=== PATIENT | male | born 1965 | race American Indian/Alaskan Native ===

== ENCOUNTER 2017-03-07 15:46 | Outpatient (CLI) | payer MEDICARE ==
--- NOTE | 2017-03-07 17:39 | Ultrasound Report ---
FINAL REPORT PROCEDURE: US ABDOMEN COMPLETE TECHNIQUE: Real-time sonography in multiple planes of the abdomen was performed with image documentation. CPT 71378 HISTORY: Weight gain. Evaluate for ASCITES COMPARISON: No prior studies are available for comparison. FINDINGS: Liver: Diffuse increased echogenicity suggests fatty infiltration. Gallbladder: Fluid filled. No gallstones, wall thickening, pericholecystic fluid, or sonographic Garcia's sign. Intrahepatic bile ducts: Normal caliber . Extrahepatic bile ducts: Common bile duct measures 4 millimeters in caliber. Pancreas: Not well-visualized. Aorta: Visualized portions appear normal. IVC: Visualized portions appear normal. RIGHT kidney: Normal echotexture. No focal renal mass, calculus, or hydronephrosis. Length: 12.1cm. LEFT kidney: Normal echotexture. No focal renal mass, calculus, or hydronephrosis . Length: 11.0cm. Spleen: Normal size and echotexture. No focal lesions. Intraperitoneal fluid: None . Other: None . IMPRESSION: No free intraperitoneal fluid is seen. Fatty infiltration of the liver.
== END 2017-03-07 15:47 | disposition home or self-care (01) ==
LOC: US 15:46
PROVIDERS: ATTEND Hospitalist
DX: K76.0 Fatty (change of) liver, not elsewhere classified (principal); R18.8 Other ascites; I10 Essential (primary) hypertension
CPT/HCPCS: 76700

== ENCOUNTER 2017-08-27 09:14 | Outpatient (CLI) | payer MEDICARE ==
--- NOTE | 2017-08-29 12:07 | Vascular Lab Report ---
LOWER EXTREMITY VENOUS DUPLEX: REASON FOR EXAM: Pain and swelling of the lower extremities. COMMENTS ON THE RIGHT: All veins visualized are freely compressible without evidence of internal echogenicity. Flow is spontaneous and phasic throughout. Right inguinal adenopathy is noted. COMMENTS ON THE LEFT: All veins visualized are freely compressible without evidence of internal echogenicity. Flow is spontaneous and phasic throughout. Left inguinal adenopathy is noted. IMPRESSION: No evidence of acute or chronic deep venous thrombosis in either lower extremity. Right inguinal adenopathy is noted. Left inguinal adenopathy is noted.
== END 2017-08-27 09:15 | disposition home or self-care (01) ==
LOC: SPVWC 09:14
PROVIDERS: ATTEND Internal Medicine Hematology
DX: M79.661 Pain in right lower leg (principal); M79.662 Pain in left lower leg; R59.0 Localized enlarged lymph nodes
CPT/HCPCS: 93970

== ENCOUNTER 2017-09-06 08:41 | Outpatient (CLI) | payer MEDICARE ==
--- NOTE | 2017-09-06 11:31 | Ultrasound Report ---
TESTICULAR ULTRASOUND WITH DUPLEX DOPPLER ULTRASOUND: 09/06/17 CLINICAL: Left testicular pain. FINDINGS: High resolution ultrasound demonstrated normal testes with normal echogenicity size and contours. No testicular mass. The right testis measured 3.6 x 1.8 x 3.0cm. The left testis measured 4.0 x 2.1 x 3.1cm. A 2 mm cyst of the left epididymis and otherwise normal left epididymis. Normal right epididymis. Both testes and epididymes demonstrated normal blood flow by color and duplex Doppler with normal spectral waveforms. Prominent scrotal veins on both sides but no varicocele identified with a Valsalva maneuver. No inguinal hernia identified. IMPRESSION: 1. Normal testes. 2. A 2 mm benign left epididymal cyst. 3. No evidence of epididymitis or orchitis. 4. Prominent scrotal veins suggest varicocele as a possible etiology for pain.
== END 2017-09-06 08:42 | disposition home or self-care (01) ==
LOC: SPVWC 08:41
PROVIDERS: ATTEND Internal Medicine Hematology
DX: N50.3 Cyst of epididymis (principal); N50.89 Other specified disorders of the male genital organs; I82.90 Acute embolism and thrombosis of unspecified vein
CPT/HCPCS: 93975

== ENCOUNTER 2017-11-08 07:56 | Outpatient (CLI) | payer MEDICARE ==
--- NOTE | 2017-11-14 12:14 | Vascular Lab Report ---
LOWER EXTREMITY VENOUS DUPLEX: REASON FOR EXAM: Pulmonary embolism. COMMENTS ON THE RIGHT: All veins visualized are freely compressible without evidence of internal echogenicity. Flow is spontaneous and phasic throughout. COMMENTS ON THE LEFT: All veins visualized are freely compressible without evidence of internal echogenicity. Flow is spontaneous and phasic throughout. IMPRESSION: No evidence of acute or chronic deep venous thrombosis in either lower extremity.
== END 2017-11-08 07:57 | disposition home or self-care (01) ==
LOC: SPVWC 07:56
PROVIDERS: ATTEND Internal Medicine Hematology
DX: I82.90 Acute embolism and thrombosis of unspecified vein (principal); I26.99 Other pulmonary embolism without acute cor pulmonale
CPT/HCPCS: 93970